=== PATIENT | female | born 1955 | race Caucasian/White ===

== ENCOUNTER → 2016-09-05 | Outpatient (CLI) | payer OTHER | LOC: CIMAGING 12:04 | DX: Z12.31 Encounter for screening mammogram for malignant neoplasm of breast (principal) | CPT/HCPCS: G0202 ==

== ENCOUNTER → 2017-09-09 | Outpatient (CLI) | payer OTHER | LOC: CIMAGING 10:55 | PROVIDERS: ATTEND Internal Medicine | DX: Z12.31 Encounter for screening mammogram for malignant neoplasm of breast (principal) ==

== ENCOUNTER → 2018-09-16 | Outpatient (CLI) | payer OTHER | LOC: CIMAGING 12:47 ==